=== PATIENT | female | born 2000 | race Caucasian/White ===

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

== ENCOUNTER → 2022-07-11 | Outpatient (CLI) | payer BC, OTHER ==
--- NOTE | 2022-07-11 15:08 | Diagnostic Imaging Report ---
INDICATION: Early 1st trimester. FINDINGS: There is a single live IUP measuring 6 weeks 2 days gestational age with the heart rate recorded at 118 BPM. No perigestational sac hemorrhage is detected. The uterus measures 8.4 x 5.0 x 6.0 cm. The right ovary measures 3.1 x 2.9 x 2.2 cm. The left ovary measures 2.8 x 3.1 x 2.0 cm. The cervical length is 3.1 cm. No free fluid is detected. IMPRESSION: Single live IUP of 6 weeks 2 days gestational age with an estimated date of confinement sonographically of 03/04/2023. Dictated by: Dictated on workstation # [id number]
== END ==
LOC: RAD 13:03
PROVIDERS: ATTEND Obstetrics & Gynecology
DX: Z34.81 Encounter for supervision of other normal pregnancy, first trimester (principal); Z3A.01 Less than 8 weeks gestation of pregnancy
CPT/HCPCS: 76801; 76817